=== PATIENT | male | born 1945 | race Caucasian/White ===

== ENCOUNTER 2018-03-03 08:54 | Emergency (ER) | payer MEDICARE ==
--- NOTE | 2018-03-03 09:15 | ERPHSYRPT ---
- History of Present Illness Time Seen by Provider: 03/03/18 09:05 Source: patient Exam Limitations: no limitations Patient Subjective Stated Complaint: Pt states "I have this sore on my lower right lip and I wear a full face cpap at night ant this sore has been here for a month and it bleeds a lot and I am not sure why it will not go away." Triage Nursing Assessment: Pt alert and oriented X 3, skin pwd. Pt ambulates with an upright steady gait, able to speak in clear full sentences. PT has small approx 1 cm circular wound on the lower right lip. no bleeding at this time. Physician History: 72 y/o male comes to the ER with complaints of right lower lip ulcer and bleeding for the past month. Pt uses a CPAP machine and occasionally has bleeding from the lip. Pt had an episode this morning that was subsided by pressure. Pt is on eliquis. Pt is also a felton. Timing/Duration: gradual onset ENT Location: mouth Prearrival Treatment: no prearrival treatment Modifying Factors: Improves With: nothing Associated Symptoms: denies symptoms Hx Tetanus, Diphtheria Vaccination/Date Given: Yes Hx Influenza Vaccination/Date Given: Yes Hx Pneumococcal Vaccination/Date Given: Yes Immunizations Up to Date: Yes - Review of Systems Constitutional: No Fever, No Chills Eyes: No Symptoms Ears, Nose, & Throat: Other (ulcerated lip lesion) Respiratory: No Cough, No Dyspnea Cardiac: No Chest Pain, No Edema, No Syncope Abdominal/Gastrointestinal: No Abdominal Pain, No Nausea, No Vomiting, No Diarrhea Genitourinary Symptoms: No Dysuria Musculoskeletal: No Back Pain, No Neck Pain Skin: No Rash Neurological: No Dizziness, No Focal Weakness, No Sensory Changes Psychological: No Symptoms Endocrine: No Symptoms All Other Systems: Reviewed and Negative - Past Medical History Pertinent Past Medical History: Yes Neurological History: No Pertinent History ENT History: No Pertinent History Cardiac History: Coronary Artery Disease, Hypertension Respiratory History: COPD Endocrine Medical History: Diabetes Type I, Hypothyroidism Musculoskeletal History: No Pertinent History GI Medical History: No Pertinent History History: No Pertinent History Psycho-Social History: No Pertinent History Male Reproductive Disorders: No Pertinent History - Past Surgical History Past Surgical History: Yes Other Surgical History: colonoscopy. bypass. pacemaker - Social History Smoking Status: Current every day smoker How long have you smoked: years Exposure to second hand smoke: Yes Drug Use: none Patient Lives Alone: No - Nursing Vital Signs Nursing Vital Signs: Initial Vital Signs Temperature 97.6 F 03/03/18 09:00 Pulse Rate 74 03/03/18 09:00 Respiratory Rate 18 03/03/18 09:00 Blood Pressure 141/70 03/03/18 09:00 O2 Sat by Pulse Oximetry 96 03/03/18 09:00 Pain Scale Pain Intensity 0 - Physical Exam General Appearance: no apparent distress, alert Eye Exam: bilateral eye: PERRL, EOMI Nasal Exam: normal inspection Throat Exam: pharynx normal, moist mucus membranes, No tonsillar exudate Neck Exam: normal inspection, non-tender, supple, No lymphadenopathy (R), No lymphadenopathy (L) (ulcerated small lesion right lower lip. no bleeding) Cardiovascular/Respiratory Exam: normal breath sounds, regular rate/rhythm Abdominal Exam: non-tender, soft Neurologic Exam: alert, oriented x 3, sensation nml, No motor deficits Skin Exam: normal color, warm, dry SpO2: 96 Oxygen Delivery: Room Air - Course Nursing assessment & vital signs reviewed: Yes - Progress Progress: unchanged Progress Note: 03/03/18 09:14 Pt will be referred to dermatology, Dr Garcia in [place] for a biopsy. - Departure Time of Disposition: 09:15 Departure Disposition: Home Clinical Impression: Lip lesion Condition: Stable Critical Care Time: No Instructions: Mouth Sores (DC) Additional Instructions: Follow up with the endoscopy tech tomorrow with the information provided.
[2018-03-03 09:20] VITALS: BP 152/89; PULSE 70; O2SAT 99
== END 2018-03-03 09:29 | disposition home or self-care (01) ==
LOC: ED 08:54
DX: K13.0 Diseases of lips (principal)
CPT/HCPCS: 99283

== ENCOUNTER 2022-06-01 08:42 | Day surgery (SDC) | payer MEDICARE ==
--- NOTE | 2022-05-31 12:09 | HP ---
DATE OF SURGERY: 06/01/2022 HISTORY OF PRESENT ILLNESS: The patient is a 76-year-old male who presented with complaints of having some regurgitation. He feels liquid go down in his stomach and come back up. He stated Dr. Jones did dilatation one year ago. His last colonoscopy he had polyps. He is having some bowel issues since his left inguinal hernia repair in 2019. He has been a little constipated. He is on a laxative. He sates his dad had colon cancer. PAST MEDICAL HISTORY: Hypertension, gastroesophageal reflux disease, pacemaker, thyroid disease, diabetes, coronary artery disease. PAST SURGICAL HISTORY: Heart cath. Coronary artery bypass graft. Left inguinal hernia repair. Laparoscopic cholecystectomy. ALLERGIES: NKDA. MEDICATIONS: Humalog, alprazolam, Plavix, Pepcid, Kerendia, Farxiga, hydralazine, potassium, losartan, Fenofibrate, levothyroxine, clonidine, pravastatin, terazosin, metoprolol, Eliquis. FAMILY HISTORY: None reported. SOCIAL HISTORY: None reported. REVIEW OF SYSTEMS: CONSTITUTIONAL: Denies fever or chills. CHEST: Denies shortness of breath. CVS: Denies chest pain. ABDOMEN: Denies abdominal pain. PHYSICAL EXAMINATION: GENERAL: No acute distress. CHEST: Nonlabored. No shortness of breath. CVS: Regular rate and rhythm. ABDOMEN: Soft. IMPRESSION: Dysphagia, history of colon polyps, family history of colon cancer. PLAN: EGD and colonoscopy with Dr. Osvaldo Montenegro. As dictated by Tamiko Ching NP.
[2022-06-01] MEDS ORDERED: Lactated Ringers 1,000 ML IV SCH (09:30)
[2022-06-01] MEDS ORDERED: DIPRIVAN 200 MG/20 ML IV ONE ×2 (10:40→11:06)
[2022-06-01] MEDS ORDERED: Xylocaine-Mpf 2% 5 Ml Vial ONE ×2 (10:40→10:43)
--- NOTE | 2022-06-01 12:16 | OP ---
SURGERY DATE/TIME: 06/01/2022 1104 PREOPERATIVE DIAGNOSES: 1) Dysphagia. 2) History of polyps. 3) Family history of colon cancer. POSTOPERATIVE DIAGNOSES: 1) Dysphagia. 2) History of polyps. 3) Family history of colon cancer. PROCEDURES: 1) EGD. 2) Esophageal dilatation with Ragland dilator size 48. 3) Colonoscopy. SURGEON: Osvaldo Montenegro M.D. ANESTHESIA: MAC. COMPLICATIONS: None. CONDITION: Stable. DESCRIPTION OF PROCEDURE: The patient has esophageal stricture approximately size 40 substantially spastic in nature. Grade 2 over 4 gastroesophageal reflux disease. No hiatal hernia today. Anal digital examination satisfactory. Scope advanced to the sigmoid. The sigmoid was treacherous. It had severe diverticulosis and had a large amount of stool particles from the diverticulosis nearly occluding the lumen. With care and patience it was navigated and the right side was navigated to the ileocecal valve. Ileocecal valve was normal. Base of the cecum normal. Bowel prep was awful. On circumferential withdrawal no mucosal lesions were noted. IMPRESSION: Grossly satisfactory exam today although prep was barely adequate. Anticipated follow up three years for colonoscopy. Actually the patient is going be at age greater than 78 so we can make surveillance PRN, any symptoms he would warrant a C-scope or upper scope.
[2022-06-01 12:40] VITALS: O2SAT 98
[2022-06-01 12:47] VITALS: BP 138/74; PULSE 74
== END 2022-06-01 12:40 | disposition home or self-care (01) ==
LOC: SDC 08:42
PROVIDERS: ATTEND Surgery
DX: Z08 Encounter for follow-up examination after completed treatment for malignant neoplasm (principal); Z86.010 Personal history of colon polyps; K21.9 Gastro-esophageal reflux disease without esophagitis; K57.30 Diverticulosis of large intestine without perforation or abscess without bleeding; R13.10 Dysphagia, unspecified; Z80.0 Family history of malignant neoplasm of digestive organs; E11.9 Type 2 diabetes mellitus without complications
CPT/HCPCS: 82947; 99100; J2704

== ENCOUNTER 2024-01-31 15:35 | Day surgery (SDC) | payer MEDICARE ==
[2024-01-31] MEDS ORDERED: BUPIVACAINE 0.5% VIAL IJ ONE (15:36)
[2024-01-31] MEDS ORDERED: LIDOCAINE HCL 1% 50 MG/5 ML VL PF IJ ONE (15:36)
[2024-01-31] MEDS ORDERED: Depo-Medrol 40 MG/ML IM ONE (15:36)
--- NOTE | 2024-01-31 16:49 | XRAY ---
Indication: Bilateral SI joint injection. Intraoperative fluoroscopy provided for 35 seconds. 4 digital spot image demonstrates posterior needle tips projecting over left and right SI joints. Small amount of contrast injected for needle tip placement. Correlate with intraoperative findings/report.
--- NOTE | 2024-02-01 10:36 | XRAY ---
35 seconds of fluoroscopy were used in surgery for bilateral sacroiliac joint injections.
== END 2024-01-31 16:55 ==
LOC: SDC-PAIN 15:35
PROVIDERS: ATTEND Psychiatry & Neurology Pain Medicine
DX: M46.1 Sacroiliitis, not elsewhere classified (principal); E11.9 Type 2 diabetes mellitus without complications
CPT/HCPCS: 27096; 72202; 77002; 82947; J2001; Q9966; G0260

== ENCOUNTER 2024-06-13 02:17 | Emergency (ER) | payer MEDICARE ==
[2024-06-13 02:29] VITALS: TEMP 97
--- NOTE | 2024-06-13 02:45 | ERPHSYRPT ---
- History of Present Illness Time Seen by Provider: 06/13/24 02:35 Historian: patient, EMS Exam Limitations: no limitations Patient Subjective Stated Complaint: Pt reports for approx 4 days he was constipated so he took "some laxatives" and had two bowel movements today. After the second bowel movement he started experiencing left upper and lower quad pain. Denies any vomiting, blood in stool. Triage Nursing Assessment: Pt alert and oriented x3. Respirations easy/nonlabored. Skin w/p/d. Ambulated to ED cot without difficulty. Active bowel sounds in all four quads. Abdomen round/firm, left upper and lower quad tender with palpation. Physician History: This is an 78-year-old white male patient of Dr. Paulson and presents to the emergency department by private vehicle accompanied by his spouse secondary to left sided abdominal pain that has been present for several weeks but worsened at approximately 6 PM on the evening of 06/12/2024. Recently, last 4 days, patient has had constipation. At approximately 3 PM on 06/12/2024 he began taking laxatives to help relieve constipation. He soon after had a bowel movem ent and felt some pain in the left side of his abdomen. At 6 PM he had worsening pain in the left side of his abdomen after a bowel movement. He has not had any vomiting. He did not see any blood in his stool. The pain in the left side of his abdomen is sharp and constant. He does not have chest pain and he is not short of breath. Patient's last colonoscopy was over 5 years ago. He does have an appointment to see a general surgeon on June 26, 2024 to schedule an upper endoscopy for evaluation of esophageal issues. Patient has chronic renal disease, hypertension, hypothyroidism, hyperlipidemia, diabetes, coronary artery disease (CABG and cardiac stents), pacemaker in place, gastroesophageal reflux disease and is on Eliquis. Patient has a pain specialist, Dr. Hansen, and corrugator supervisor Dr. Garner, and a rag sorter and cutter Dr. Whitehead Timing/Duration: yesterday, worse Quality: sharpness Abdominal Pain Onset Location: LUQ, LLQ Pain Radiation: no radiation Severity of Pain-Max: moderate Severity of Pain-Current: moderate Modifying Factors: Improves With: nothing Associated Symptoms: denies symptoms Previous symptoms: same symptoms as today, no recent treatment Allergies/Adverse Reactions: No Known Drug Allergies Allergy (Verified 06/13/24 02:18) Home Medications: Dapagliflozin Propanediol [Farxiga] 10 mg PO DAILY 05/15/22 [History] Ergocalciferol (Vitamin D2) [Vitamin D2] 50,000 unit PO DAILY 05/15/22 [History] Fenofibrate 160 mg PO UD 05/15/22 [History] HydrALAzine HCL 25 MG TAB [Apresoline 25 MG TABLET] 25 mg PO BID 05/15/22 [History] Insulin Lispro [Humalog Kwikpen U-100] See Rx Instructions .ROUTE .COMPLEX 05/15/22 [History] Levothyroxine Sodium 100 Mcg [Synthroid 100 Mcg] 100 mcg PO DAILY 05/15/22 [History] Losartan Potassium 50 mg [Cozaar 50 MG] 100 mg PO HS 05/15/22 [History] Metoprolol Succinate 25 mg Xl* [Toprol-Xl 25MG Tablets] 100 mg PO DAILY 05/15/22 [History] Nitroglycerin 0.4 mg Tablet [Nitrostat 0.4 MG Tablet] 0.4 mg SL UD 05/15/22 [History] Pravastatin Sodium 40 mg PO DAILY 05/15/22 [History] Terazosin HCl 1 mg [Hytrin 1 mg] 5 mg PO BID 05/15/22 [History] Amlodipine Besylate 2.5 mg PO DAILY 06/13/24 [History] Apixaban [Eliquis 5 mg Tablet] 5 mg PO BID 06/13/24 [History] Bupropion HCl Xl 150 mg [Wellbutrin XL 150 MG] 1 tab PO DAILY 06/13/24 [History] Dapagliflozin Propanediol [Farxiga] 1 tab PO DAILY 06/13/24 [History] Escitalopram Oxalate 1 tab PO UD 06/13/24 [History] Finasteride 5 mg [Proscar 5 MG] 1 tab PO DAILY 06/13/24 [History] Furosemide 1 tab PO DAILY 06/13/24 [History] Insulin Degludec [Tresiba Flextouch U-200] 120 units SQ HS 06/13/24 [History] Metoclopramide HCl 1 tab PO TID 06/13/24 [History] PANTOPRAZOLE 40 mg Tablet [Protonix 40MG Tablet] 1 tab PO DAILY 06/13/24 [History] Hx Tetanus, Diphtheria Vaccination/Date Given: Yes Hx Influenza Vaccination/Date Given: Yes Hx Pneumococcal Vaccination/Date Given: No Travel Risk - International Travel Have you traveled outside of the country in past 3 weeks: No - Emerging Infectious Disease Are you exhibiting symptoms associated with any current EIDs: No - Review of Systems Constitutional: No Symptoms Eyes: No Symptoms Ears, Nose, & Throat: No Symptoms Respiratory: No Symptoms Cardiac: No Symptoms Abdominal/Gastrointestinal: Abdominal Pain (Left upper and left lower quadrant. Pain primarily left lower quadrant) Genitourinary Symptoms: No Symptoms Musculoskeletal: No Symptoms Skin: No Symptoms Neurological: No Symptoms Psychological: No Symptoms Endocrine: No Symptoms Hematologic/Lymphatic: No Symptoms Immunological/Allergic: No Symptoms All Other Systems: Reviewed and Negative - Past Medical History Pertinent Past Medical History: Yes Neurological History: No Pertinent History ENT History: No Pertinent History Cardiac History: High Cholesterol, Hypertension, Other Respiratory History: Sleep Apnea Endocrine Medical History: Diabetes Type I, Other Musculoskeletal History: No Pertinent History GI Medical History: No Pertinent History History: No Pertinent History Psycho-Social History: No Pertinent History Male Reproductive Disorders: No Pertinent History Other Medical History: KIDNEY FUNCTION 31%. CABG X3, STINTS. PACEMAKER. - Past Surgical History Past Surgical History: Yes Neuro Surgical History: No Pertinent History Cardiac: CABG, Cardiac Catheterization, Pacemaker Respiratory: No Pertinent History Gastrointestinal: Cholecystectomy, Hernia Repair Genitourinary: No Pertinent History Male Surgical History: No Pertinent History Other Surgical History: colonoscopy. bypass. pacemaker - Social History Smoking Status: Never smoker How long have you smoked: years Exposure to second hand smoke: No Drug Use: none Patient Lives Alone: No - Social Determinants of Health Will the patient participate in the screening: Declined to provide - Nursing Vital Signs Nursing Vital Signs: Initial Vital Signs Temperature 97 F 06/13/24 02:18 Pulse Rate 72 06/13/24 02:18 Respiratory Rate 17 06/13/24 02:18 Blood Pressure 143/59 06/13/24 02:18 O2 Sat by Pulse Oximetry 97 06/13/24 02:18 Pain Scale Pain Intensity 7 - Physical Exam General Appearance: no apparent distress, alert Eye Exam: PERRL/EOMI, eyes nml inspection Ears, Nose, Throat Exam: normal ENT inspection, moist mucous membranes Neck Exam: normal inspection, non-tender, supple, full range of motion Respiratory Exam: normal breath sounds, lungs clear, airway intact, No chest tenderness, No respiratory distress Cardiovascular Exam: regular rate/rhythm, normal heart sounds, normal peripheral pulses Gastrointestinal/Abdomen Exam: soft, normal bowel sounds, tenderness (Lower quadrant to palpation), guarding (Left lower quadrant to palpation), rebound (+ /- Palpation left lower quadrant) Rectal Exam: not done Back Exam: normal inspection, normal range of motion, No CVA tenderness, No vertebral tenderness Extremity Exam: normal inspection, normal range of motion, pelvis stable Neurologic Exam: alert, oriented x 3, cooperative, destaticizer feeder II-XII nml as tested, normal mood/affect, nml cerebellar function, nml station & gait, sensation nml Skin Exam: normal color, warm, dry Lymphatic Exam: No adenopathy SpO2 Interpretation: normal SpO2: 97 O2 Delivery: Room Air - Course Nursing assessment & vital signs reviewed: Yes Ordered Tests: Active Orders 24 hr Category Date Time Status IV Insertion STAT Care 06/13/24 02:43 Active ABDOMEN AND PELVIS W/0 CONTRAS [CT] Stat Exams 06/13/24 03:09 Completed AMYLASE Stat Lab 06/13/24 03:00 Completed CBC W DIFF Stat Lab 06/13/24 03:00 Completed CMP Stat Lab 06/13/24 03:00 Completed LIPASE Stat Lab 06/13/24 03:00 Completed POCT GLUCOSE Stat Lab 06/13/24 03:40 Completed UA W/RFX UR CULTURE Stat Lab 06/13/24 02:43 Ordered Medication Summary Discontinued Medications Generic Name Dose Route Start Last Admin Trade Name Freq PRN Reason Stop Dose Admin Hydromorphone HCl 0.5 mg 06/13/24 02:43 06/13/24 03:26 Hydromorphone 1 Mg/1ml Inj IV 06/13/24 02:44 0.5 mg STAT ONE Administration Hydromorphone HCl Confirm 06/13/24 03:23 Hydromorphone 1 Mg/1ml Inj Administered 06/13/24 03:24 Dose 1 mg .ROUTE .STK-MED ONE Sodium Chloride 1,000 mls @ 999 mls/hr 06/13/24 02:43 06/13/24 03:27 Sodium Chloride 0.9% 1000 Ml IV 06/13/24 03:43 999 mls/hr .Q1H1M STA Administration Sodium Chloride Confirm 06/13/24 03:23 Sodium Chloride 0.9% 1000 Ml Administered 06/13/24 03:24 Dose 1,000 mls @ ud .ROUTE .STK-MED ONE Ondansetron HCl 4 mg 06/13/24 02:43 06/13/24 03:26 Ondansetron Hcl 4 Mg/2 Ml Vial IV 06/13/24 02:44 4 mg STAT ONE Administration Ondansetron HCl Confirm 06/13/24 03:22 Ondansetron Hcl 4 Mg/2 Ml Vial Administered 06/13/24 03:23 Dose 4 mg .ROUTE .STK-MED ONE Lab/Rad Data: Laboratory Result Diagrams 06/13/24 03:00 06/13/24 03:00 Laboratory Results 06/13/24 06/13/24 06/13/24 Range/Units 03:40 03:00 03:00 WBC 9.0 (4.23-9.07) x10^3/uL RBC 4.99 (4.63-6.08) x10^6/uL Hgb 15.6 (13.7-17.5) g/dL Hct 47.3 (40.1-51.0) % MCV 94.8 H (79.0-92.2) fL MCH 31.3 (25.7-32.2) pg MCHC 33.0 (32.3-36.5) g/dL RDW 13.5 (11.6-14.4) % Plt Count 163 (163-337) x10^3/uL MPV 12.5 H (9.4-12.4) fL Gran % 70.3 H (34.0-67.9) % Immature Gran % (Auto) 0.7 H (0.001-0.429) % Nucleat RBC Rel Count 0.0 (0.00-0.2) % Eos # (Auto) 0.28 (0.04-0.54) x10^3/uL Immature Gran # (Auto) 0.06 H (0.001-0.031) x10^3u/L Absolute Lymphs (auto) 1.59 (1.32-3.57) x10^3/uL Absolute Monos (auto) 0.70 (0.30-0.82) x10^3/uL Absolute Nucleated RBC 0.00 (0.00-0.012) x10^3u/L Lymphocytes % 17.6 L (21.8-53.1) % Monocytes % 7.7 (5.3-12.2) % Eosinophils % 3.1 (0.8-7.0) % Basophils % 0.6 (0.2-1.2) % Absolute Granulocytes 6.36 H (1.78-5.38) x10^3/uL Basophils # 0.05 (0.01-0.08) x10^3/uL Sodium 141 (135-145) mmol/L Potassium 3.5 (3.5-5.1) mmol/L Chloride 107 (98-107) mmol/L Carbon Dioxide 27 (22-30) mmol/L Anion Gap 10.0 (5-15) MEQ/L BUN 28 H (9-20) mg/dL Creatinine 2.01 H (0.66-1.25) mg/dL Estimated GFR 32.9 ML/MIN Glucose 230 H (74-106) mg/dL POC Glucometer 230 H (74 to 106) mg/dL Calcium 9.1 (8.4-10.2) mg/dL Total Bilirubin 0.60 (0.2-1.3) mg/dL AST 31 (17-59) U/L ALT 28 (0-50) U/L Alkaline Phosphatase 61 (38-126) U/L Serum Total Protein 6.1 L (6.3-8.2) g/dL Albumin 3.6 (3.5-5.0) g/dL Amylase 67 (30-110) U/L Lipase 64 (23-300) U/L - Progress Progress: improved, pain not gone completely Progress Note: 06/13/24 03:26 My medical decision making and the assignment of moderate complexity to this patient's medical issue today is based on review of the patient's past medical history, review the patient's medication list, review the patient's drug allergy list, history present illness and physical findings on examination. The workup in this patient includes placement of an intravenous line, infusion of normal saline solution, infusion of Zofran, infusion of Dilaudid, CBC, CMP, amylase, lipase, urinalysis, CT scan of the abdomen pelvis without contrast. Differential diagnosis includes but is not limited to pancreatitis, colitis, diverticulitis, abdominal aortic abnormality, colonic tumor 06/13/24 05:11 I interpreted the patient's laboratory data results. Based on the laboratory data results, the patient does show evidence of chronic renal disease. There are no other significant, acute findings based on the laboratory data results. The CT scan of the abdomen pelvis without contrast was interpreted by the radiologist and I reviewed the impression. The impression states early sigmoid diverticulitis.. There is mild hepatomegaly and bilateral fat-containing inguinal hernias right side greater than left. Counseled pt/family regarding: lab results, diagnosis, rad results Medical Desision Making - Independent Historian Additional History obtained from: Spouse - Diagnostic Testing Diagnostic test were ordered, analyzed, and reviewed by me: Yes Radiological Interpretation: Reviewed by me, Teleradiologist Report - Risk of complications The pt has a mod risk of morbidity or mortality based on: Need for prescription drug management - Departure Departure Disposition: Home Clinical Impression: Sigmoid diverticulitis, Bilateral inguinal hernia Condition: Stable Critical Care Time: No Referrals: GITA PAULSON MD [Primary Care Provider] - Follow up/PCP as directed Additional Instructions: Drink plenty of fluids. Take your antibiotics and other medications as prescribed. Call your primary care provider today, 06/13/2024 to make arrangements for follow-up appointment and to be seen in the next 5 to 7 days and referred to the general surgeon to arrange for a colonoscopy. Prescriptions: Hydrocodone/APAP 5/325 [Lavonia 5/325 mg] 1 each PO Q8H PRN PRN #9 tablet MDD 3 PRN Reason: Pain Ciprofloxacin [Cipro 500 MG] 500 mg PO BID #14 tablet Metronidazole 500 mg [Flagyl 500 MG] 500 mg PO TID #21 tablet
[2024-06-13 03:04] LABS: Absolute Neutrophil Ct (ANC) 6.36 x10^3/uL (1.78-5.38); BASOPHIL % 0.6 % (0.2-1.2); Basophil (Absolute #) 0.05 x10^3/uL (0.01-0.08); Eosinophil % 3.1 % (0.8-7.0); Eosinophil (Absolute #) 0.28 x10^3/uL (0.04-0.54); Hematocrit 47.3 % (40.1-51.0); Hemoglobin 15.6 g/dL (13.7-17.5); IMMATURE GRAN # 0.06 x10^3u/L (0.001-0.031); IMMATURE GRAN % 0.7 % (0.001-0.429); Lymphocyte (Absolute #) 1.59 x10^3/uL (1.32-3.57); Lymphocytes % 17.6 % (21.8-53.1); Mean Cell Volume 94.8 fL (79.0-92.2); Mean Corpuscular Hemoglobin 31.3 pg (25.7-32.2); Mean Platelet Volume 12.5 fL (9.4-12.4); Monocytes % 7.7 % (5.3-12.2); Neutrophil % 70.3 % (34.0-67.9); Platelet Count 163 x10^3/uL (163-337); Red Blood Count 4.99 x10^6/uL (4.63-6.08); Red Cell Distribution Width 13.5 % (11.6-14.4)
[2024-06-13 03:22] LABS: ALBUMIN 3.6 g/dL (3.5-5.0); BILIRUBIN,TOTAL 0.6 mg/dL (0.2-1.3); Calcium 9.1 mg/dL (8.4-10.2); Creatinine 1 2.01 mg/dL (0.66-1.25); EST GLOMERULAR FILTRATION RATE 32.9 ML/MIN; Potassium 3.5 mmol/L (3.5-5.1); Total Protein 6.1 g/dL (6.3-8.2)
[2024-06-13] MEDS ORDERED: Zofran 4 MG/2 ML VIAL ONE (03:22)
[2024-06-13] MEDS ORDERED: Hydromorphone 1 mg/ml Injection ONE ×2 (03:23→05:20)
[2024-06-13] MEDS ORDERED: Sodium Chloride 0.9% 1000 ML 1,000 ML ONE (03:23)
[2024-06-13] MEDS: Zofran 4 MG/2 ML VIAL IV ONE (03:26)
[2024-06-13] MEDS: Hydromorphone 1 mg/ml Injection IV ONE (03:26)
[2024-06-13] MEDS: Sodium Chloride 0.9% 1000 ML 1,000 ML IV STA (03:27)
[2024-06-13 04:19] VITALS: RESP 16
--- NOTE | 2024-06-13 04:39 | XRAY ---
CLINICAL HISTORY: Left side abdominal pain COMPARISON: None. TECHNIQUE: Contiguous axial images were obtained from the level of the diaphragm to the pubic symphysis without intravenous or oral contrast. Coronal and sagittal reformatted images were generated and reviewed to assist with anatomic localization and lesion detection. CT scan was performed according to ALARA (as low as reasonable achievable). FINDINGS: The visualized lung bases show fibrotic bands in left base. Evaluation of the abdominal and pelvic visceral organs is limited without intravenous contrast. The liver is mildly enlarged, measuring 15 cm in craniocaudal span. Gallbladder is surgically absent with surgical clips in the gallbladder fossa. The kidneys show a 3 cm simple cyst at lower pole of right kidney. There is no hydronephrosis or perinephric stranding. The ureters are normal in caliber. Pacemaker leads are noted terminating in right atrium and right ventricle. Multiple small mural outpouchings are noted from sigmoid colon and descending colon with moderate surrounding fat stranding in left iliac fossa and left lumbar region. There are multiple foci of intraperitoneal free air seen on the left side of abdomen, predominantly in the left lower quadrant. Reactive symmetric wall thickening od t Bilateral small fat-containing inguinal hernias are present, more prominent on the right side. Few atherocalcific plaques noted in the abdominal aorta. Degenerative changes are noted in the visualized spine. No aggressive appearing osseous lesions seen. IMPRESSION: 1. Early sigmoid diverticulitis, explaining the patient's left abdominal pain symptoms. 2. Mild hepatomegaly. 3. Bilateral fat-containing inguinal hernias, right more prominent than left. Electronically Signed by: Lennox Gross MD. (06/13/2024 04:36:27 EST)
[2024-06-13] MEDS ORDERED: Levofloxacin 500 MG Tablet ONE (05:19)
[2024-06-13] MEDS ORDERED: Flagyl 500 MG ONE (05:20)
[2024-06-13] MEDS: Flagyl 500 MG PO ONE (05:23)
[2024-06-13] MEDS: Levofloxacin 500 MG Tablet PO ONE (05:24)
[2024-06-13] MEDS: Hydromorphone 1 mg/ml Injection IM ONE (05:25)
[2024-06-13 05:30] VITALS: BP 182/71; PULSE 75; O2SAT 94
== END 2024-06-13 05:36 | disposition home or self-care (01) ==
LOC: ED 02:17
DX: K57.32 Diverticulitis of large intestine without perforation or abscess without bleeding (principal); R10.12 Left upper quadrant pain; R10.32 Left lower quadrant pain; K40.90 Unilateral inguinal hernia, without obstruction or gangrene, not specified as recurrent; Z79.899 Other long term (current) drug therapy; Z79.01 Long term (current) use of anticoagulants; E11.9 Type 2 diabetes mellitus without complications; I10 Essential (primary) hypertension
CPT/HCPCS: 36415; 74176; 80053; 82150; 82947; 83690; 85025; 96372; 96374; 96375; 99284; J1171; J2405; A9270-GY